=== PATIENT | male | born 1985 | race Caucasian/White ===

== ENCOUNTER 2019-02-11 08:14 | Emergency (ER) | payer BC ==
[2019-02-11 08:25] VITALS: BP 135/87
--- NOTE | 2019-02-11 08:32 | UC ---
Ear Complaint HPI - HPI Summary HPI Summary: Patient had cold symptoms all last week and then 3 days ago on he developed left ear pain. 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 - History of Current Complaint Chief Complaint: UCEar Stated Complaint: EAR PAIN Time Seen by Provider: 02/11/19 08:25 Hx Obtained From: Patient Onset/Duration: Gradual Onset Severity Initially: Mild Severity Currently: Mild Pain Intensity: 9 Aggravating Factors: Nothing Alleviating Factors: Nothing Associated Signs/Symptoms: Positive: Swelling @ - Mild swelling just in front of the ear. - Allergies/Home Medications Allergies/Adverse Reactions: Allergies Allergy/AdvReac Type Severity Reaction Status Date / Time No Known Allergies Allergy Verified 02/11/19 08:26 PMH/Surg Hx/FS Hx/Imm Hx Previously Healthy: Yes - Surgical History Surgical History: None - Family History Known Family History: Positive: Hypertension - Social History Alcohol Use: Weekly Substance Use Type: None Smoking Status (MU): Never Smoked Tobacco Review of Systems All Other Systems Reviewed And Are Negative: Yes ENT: Positive: Ear Ache, Other - Pressure just in front of the left ear Is Patient Immunocompromised?: No Physical Exam Triage Information Reviewed: Yes Appearance: Well-Appearing, No Pain Distress, Well-Nourished Vital Signs: Initial Vital Signs Temp 98 F 02/11/19 08:22 Pulse 73 02/11/19 08:22 Resp 16 02/11/19 08:22 BP 135/87 02/11/19 08:22 Pulse Ox 100 02/11/19 08:22 Vital Signs Reviewed: Yes Eye Exam: Normal ENT: Positive: Hearing grossly normal, Pharynx normal, TMs normal, Uvula midline , Other - Mild tenderness on palpation just in front of the left ear. The left ear canal is mildly swollen and erythematous with no drainage. Tympanic membrane is pearly-sue with good land ríos and light reflex. Tenderness on palpation of the tragus manipulation of the auricle is nontender.. Negative: Trismus, Muffled voice, Hoarse voice, Sinus tenderness Neck exam: Normal Respiratory Exam: Normal Cardiovascular Exam: Normal Musculoskeletal Exam: Normal Neurological Exam: Normal Psychological Exam: Normal Skin Exam: Normal Ear Complaint Course/Dx - Course Course Of Treatment: Patient is comfortable here. 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 Because of the tenderness in front of his left ear I am GOING TO TREATED WITH AUGMENTIN 875 MG'S BY MOUTH TWICE A DAY 10 DAYS WITH A DEFINITE FOLLOW-UP IN THE EMERGENCY ROOM IF HE HAS ANY FACIAL SWELLING, CELLULITIS, ERYTHEMA OR FEVER. - Differential Dx/Diagnosis Differential Diagnosis/HQI/PQRI: Otitis Externa Provider Diagnosis: Left otitis externa Discharge - Sign-Out/Discharge Documenting (check all that apply): Patient Departure All imaging exams completed and their final reports reviewed: No Studies - Discharge Plan Condition: Good Disposition: HOME Prescriptions: Amoxicillin/Clavulanate TAB* [Augmentin TAB 875*] 875 mg PO BID 10 Days #20 tab Neomyc/Polym/HC 1% OTIC SUSP* [Cortisporin Otic Susp 1%*] 4 drop LEFT EAR QID # 1 btl Patient Education Materials: Otitis Externa (DC) Referrals: No Primary Care Phys,NOPCP [Primary Care Provider] - [facility] [Outside] Additional Instructions: Take the antibiotic with food. Keep your ear dry and do not put anything in it. Definite follow up with your primary care provider if no improvement in 3 or 4 days. Go to the emergency room for further evaluation and care if you develop any kind of facial swelling, fever or chills, redness to the face. - Billing Disposition and Condition Condition: GOOD Disposition: Home - Attestation Statements Provider Attestation: I was available for consult. This patient was seen by the SUJATHA. The patient was not presented to , seen by or examined by ct -Jerzy Alexander MD
== END 2019-02-11 08:46 | disposition home or self-care (01) ==
LOC: UCEAST 08:14
DX: H60.92 Unspecified otitis externa, left ear (principal)
CPT/HCPCS: 99212; G0463